=== PATIENT | female | born 1960 | race African-American/Black ===

== ENCOUNTER 2020-07-27 04:47 | Emergency (ER) | payer OTHER ==
[~2020-07-27] VITALS: Ht 165.1 cm; Wt 77.0 kg
[2020-07-27] MEDS ORDERED: KETOROLAC 60MG/2ML VIAL IM ONE (05:00)
[2020-07-27 05:25] VITALS: BP 133/77
[2020-07-27] MEDS ORDERED: IBUP-2029 MT (05:42)
== END 2020-07-27 06:50 | disposition home or self-care (01) ==
LOC: ER 04:47
DX: M25.551 Pain in right hip (principal); M79.604 Pain in right leg; I10 Essential (primary) hypertension; F17.200 Nicotine dependence, unspecified, uncomplicated; Z79.899 Other long term (current) drug therapy
CPT/HCPCS: 96372; 99283; J1885

== ENCOUNTER 2021-02-18 11:26 | Emergency (ER) | payer OTHER ==
[~2021-02-18] VITALS: Ht 165.1 cm; Wt 79.0 kg
[~2021-02-18 11:26] MED LIST: IBUP-2029 MT
[2021-02-18 14:48] VITALS: BP 125/67
[2021-02-18] MEDS ORDERED: MIDAZOLAM HCL 5 MG/5 ML VIAL IV PRN (15:10)
[2021-02-18 15:11] LABS: BASOPHILS % 0.5 % (0.0-2.0); EOSINOPHILS % 2.1 % (0.0-5.0); HEMATOCRIT. 36.3 % (36.0-48.0); HEMOGLOBIN. 11.9 g/dL (12.0-16.0); LYMPHOCYTES % 40.4 % (20.0-50.0); MEAN CORPUSCULAR HEMOGLOBIN 28.6 pg (28.0-32.0); MEAN CORPUSCULAR VOLUME 87.2 fL (81.0-99.0); MEAN PLATELET VOLUME 8.6 fl (7.4-10.4); PLATELET 365 x1000/uL (130-400); RED BLOOD CELL COUNT 4.17 mill/uL (4.2-5.4); RED CELL DISTRIBUTION WIDTH 15.3 % (11.6-14.6)
[2021-02-18] MEDS ORDERED: FENTANYL CITRATE/PF 50MCG/ML 2ML VIAL ONE (15:11)
[2021-02-18] MEDS ORDERED: FENTANYL CITRATE/PF 50MCG/ML 2ML VIAL IV PRN (15:11)
[2021-02-18] MEDS ORDERED: MIDAZOLAM HCL 5 MG/5 ML VIAL ONE (15:11)
[2021-02-18 15:17] LABS: CHLORIDE 107 mEq/L (98-107)
== END 2021-02-18 11:52 | disposition admitted as inpatient to this hospital (09) ==
LOC: ER 11:26
DX: T18.0XXA Foreign body in mouth, initial encounter (principal); I10 Essential (primary) hypertension; Z20.822 Contact with and (suspected) exposure to COVID-19; X58.XXXA Exposure to other specified factors, initial encounter; Y93.89 Activity, other specified; Y92.89 Other specified places as the place of occurrence of the external cause; Y99.8 Other external cause status
CPT/HCPCS: 36415; 43239; 71045; 74018; 80048; 85025; 87426; 88305; 88312; 88313; 99284; J2250; J3010; Z7610

== ENCOUNTER 2021-02-25 08:58 | Emergency (ER) | payer OTHER ==
[~2021-02-25] VITALS: Ht 165.1 cm; Wt 79.0 kg
[2021-02-25 09:01] VITALS: BP 169/90
[2021-02-25] MEDS ORDERED: SODIUM CHLORIDE 0.9% 1,000 ML IV ONE (09:30)
[2021-02-25 09:42] LABS: BASOPHILS % 1.9 % (0.0-2.0); EOSINOPHILS % 2.6 % (0.0-5.0); HEMATOCRIT. 35.8 % (36.0-48.0); HEMOGLOBIN. 11.9 g/dL (12.0-16.0); LYMPHOCYTES % 55.6 % (20.0-50.0); MEAN CORPUSCULAR HEMOGLOBIN 28.1 pg (28.0-32.0); MEAN CORPUSCULAR VOLUME 84.3 fL (81.0-99.0); MEAN PLATELET VOLUME 8.2 fl (7.4-10.4); MONOCYTES % 7.5 % (2.0-8.0); NEUTROPHILS % 32.4 % (40.0-76.0); PLATELET 322 x1000/uL (130-400); RED BLOOD CELL COUNT 4.25 mill/uL (4.2-5.4); RED CELL DISTRIBUTION WIDTH 14.7 % (11.6-14.6)
[2021-02-25 09:48] LABS: CHLORIDE 108 mEq/L (98-107)
[2021-02-25] MEDS ORDERED: OMEP20CA14 MT (11:30)
== END 2021-02-25 11:41 | disposition home or self-care (01) ==
LOC: ER 08:58 → EDBEDREQ 09:39 → ER 11:41 → CANBEDREQ 13:00
DX: T18.128A Food in esophagus causing other injury, initial encounter (principal); R10.9 Unspecified abdominal pain; X58.XXXA Exposure to other specified factors, initial encounter; Y93.89 Activity, other specified; Y92.89 Other specified places as the place of occurrence of the external cause; Y99.8 Other external cause status
CPT/HCPCS: 36415; 71045; 74018; 80053; 83690; 85025; 85610; 99284; J7030; Z7610